=== PATIENT | male | born 1950 | race African-American/Black ===

== ENCOUNTER → 2016-02-18 | Outpatient (CLI) | payer MEDICARE ==
--- NOTE | 2016-02-18 13:06 | US ---
EXAMINATION TYPE: US kidneys/renal and bladder DATE OF EXAM: 02/18/2016 12:28 PM COMPARISON: 2011 ultrasound in PACS. MRI lumbar spine August 01, 2014. Lumbar spine x-ray July 11, 2014. 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 Even more prominent versus 2011 ultrasound. Bilateral Jets seen: No There is no evidence for hydronephrosis at this point in time. Simple appearing 4 cm cyst lower pole level left kidney is redemonstrated. It is slightly larger vers us 2011 ultrasound. IMPRESSION: No hydronephrosis is evident bilaterally. Enlarged prostate consistent with BPH is noted. Clinical co rrelation advised. Normal Values: Renal Length = 9 - 12cm
== END | disposition home or self-care (01) ==
LOC: RADUSWWP 12:13
PROVIDERS: ATTEND Family Medicine
DX: N18.2 Chronic kidney disease, stage 2 (mild) (principal); N40.0 Benign prostatic hyperplasia without lower urinary tract symptoms
CPT/HCPCS: 76770

== ENCOUNTER → 2016-02-28 | Outpatient (CLI) | payer MEDICARE ==
[2016-02-28 15:03] LABS: Uric Acid, Urine 45.6 mg/dL
[2016-03-02 12:20] LABS: Mis test requested (Non-blood) Total Protein Ur24hr
== END | disposition home or self-care (01) ==
LOC: LABWHC1 10:50
PROVIDERS: ATTEND Family Medicine
DX: N18.2 Chronic kidney disease, stage 2 (mild) (principal); M10.9 Gout, unspecified
CPT/HCPCS: 36415; 81050; 82575; 84156; 84560

== ENCOUNTER → 2016-04-20 | Outpatient (CLI) | payer MEDICARE ==
[2016-04-20 09:41] LABS: Basophils # (A) 0.1 k/uL (0-0.2); Basophils % (A) 1 %; CH 28.2; Eosinophils # (A) 0.3 k/uL (0-0.7); Eosinophils % (A) 6 %; HCT 45.4 % (39.0-53.0); HDW 3.15; HGB 14.4 gm/dL (13.0-17.5); Luc # (Auto) 0.19; Luc % (Auto) 3; Lymphocytes # (A) 2.3 k/uL (1.0-4.8); Lymphocytes % (A) 43 %; MCH 27.4 pg (25.0-35.0); MCHC 31.8 g/dL (31.0-37.0); MCV 86.1 fL (80.0-100.0); Mean Platelet Volume 6.7; Monocytes # (A) 0.3 k/uL (0-1.0); Monocytes % (A) 5 %; Neutrophils # (A) 2.2 k/uL (1.3-7.7); Neutrophils % (A) 41 %; RBC 5.27 m/uL (4.30-5.90); RDW 14.4 % (11.5-15.5); WBC 5.4 k/uL (3.8-10.6); WBC (Perox) 5.63
[2016-04-20 10:02] LABS: Appearance,Urine Clear (Clear); Bilirubin,Urine Negative (Negative); Glucose,Urine (UA) Negative (Negative); Ketones,Urine Negative (Negative); Leukocyte Esterase,Urine Negative (Negative); Nitrite,Urine Negative (Negative); Protein,Urine Trace (Negative); Specific Gravity,Urine 1.014 (1.001-1.035); UA Billing (MACRO vs. MICRO) CHEM; Urobilinogen,Urine <2.0 mg/dL (<2.0)
[2016-04-20 11:38] LABS: Anion Gap 13 mmol/L; Blood Urea Nitrogen 21 mg/dL (9-20); Calcium 10.2 mg/dL (8.4-10.2); Carbon Dioxide 23 mmol/L (22-30); Chloride 108 mmol/L (98-107); Glucose 135 mg/dL (74-99); Iron 69 ug/dL (49-181); Magnesium 1.8 mg/dL (1.6-2.3); Non-African American GFR(MDRD) 51 (>60 ml/min/1.73 sqM); Potassium 4.4 mmol/L (3.5-5.1); Sodium 144 mmol/L (137-145); Uric Acid 8.2 mg/dL (3.5-8.5)
[2016-04-20 11:48] LABS: Total Iron Binding Capacity 300 ug/dL (261-462)
== END ==
LOC: LABWHC1 08:37
PROVIDERS: ATTEND Internal Medicine Nephrology
DX: N18.3 Chronic kidney disease, stage 3 (moderate) (principal); D64.9 Anemia, unspecified; E55.9 Vitamin D deficiency, unspecified; E21.3 Hyperparathyroidism, unspecified; N39.0 Urinary tract infection, site not specified; M10.9 Gout, unspecified
CPT/HCPCS: 36415; 80048; 81003; 82306; 82728; 83540; 83550; 83735; 83970; 84100; 84550; 85025

== ENCOUNTER → 2016-07-09 | Outpatient (CLI) | payer MEDICARE ==
[2016-07-09 11:08] LABS: Basophils # (A) 0.1 k/uL (0-0.2); Basophils % (A) 1 %; CH 28.3; CHCM 33.1; Eosinophils # (A) 0.3 k/uL (0-0.7); Eosinophils % (A) 6 %; HCT 43.7 % (39.0-53.0); HDW 3.14; HGB 14.4 gm/dL (13.0-17.5); Luc # (Auto) 0.12; Luc % (Auto) 3; Lymphocytes # (A) 1.5 k/uL (1.0-4.8); Lymphocytes % (A) 34 %; MCH 28.3 pg (25.0-35.0); MCHC 32.8 g/dL (31.0-37.0); Mean Platelet Volume 6.9; Monocytes # (A) 0.3 k/uL (0-1.0); Monocytes % (A) 8 %; Neutrophils # (A) 2.1 k/uL (1.3-7.7); Neutrophils % (A) 48 %; RBC 5.09 m/uL (4.30-5.90); RDW 14.7 % (11.5-15.5); WBC 4.3 k/uL (3.8-10.6); WBC (Perox) 4.32
[2016-07-09 11:13] LABS: Anion Gap 13 mmol/L; Blood Urea Nitrogen 17 mg/dL (9-20); Calcium 9.7 mg/dL (8.4-10.2); Carbon Dioxide 21 mmol/L (22-30); Chloride 109 mmol/L (98-107); Glucose 125 mg/dL (74-99); Iron 50 ug/dL (49-181); Magnesium 1.8 mg/dL (1.6-2.3); Non-African American GFR(MDRD) 55 (>60 ml/min/1.73 sqM); Phosphorous 3.2 mg/dL (2.5-4.5); Potassium 3.9 mmol/L (3.5-5.1); Sodium 143 mmol/L (137-145); Uric Acid 8.2 mg/dL (3.5-8.5)
[2016-07-09 11:22] LABS: % Iron Saturation 18.1 % (20-50); Total Iron Binding Capacity 276 ug/dL (261-462)
[2016-07-09 11:58] LABS: Appearance,Urine Clear (Clear); Bilirubin,Urine Negative (Negative); Glucose,Urine (UA) Negative (Negative); Ketones,Urine Negative (Negative); Leukocyte Esterase,Urine Negative (Negative); Mucus,Urine Rare /hpf; Nitrite,Urine Negative (Negative); Particle Count 1838; Protein,Urine 1+ (Negative); Specific Gravity,Urine 1.017 (1.001-1.035); Squamous Epithelial Cell,Urine <1 /hpf (0-4); UA Billing (MACRO vs. MICRO) MICRO; Urobilinogen,Urine <2.0 mg/dL (<2.0); WBC,Urine <1 /hpf (0-5)
== END | disposition home or self-care (01) ==
LOC: LABWHC1 10:20
PROVIDERS: ATTEND Nurse Practitioner Family
DX: N39.0 Urinary tract infection, site not specified (principal); E55.9 Vitamin D deficiency, unspecified; D64.9 Anemia, unspecified; E21.3 Hyperparathyroidism, unspecified; M10.9 Gout, unspecified; N18.3 Chronic kidney disease, stage 3 (moderate)
CPT/HCPCS: 36415; 80048; 81001; 82306; 82728; 83540; 83550; 83735; 83970; 84100; 84550; 85025

== ENCOUNTER → 2016-08-18 | Outpatient (CLI) | payer MEDICARE ==
--- NOTE | 2016-08-18 13:10 | US ---
EXAMINATION TYPE: US kidneys/renal and bladder DATE OF EXAM: 08/18/2016 COMPARISON: Renal ultrasound February 18, 2016. CLINICAL HISTORY: N28.1 Renal Cyst. Follow up renal cysts. EXAM MEASUREMENTS: Right Kidney: 11.1 x 5.3 x 5.1 cm Left Kidney: 10.7 x 5.7 x 5.8 cm Right Kidney: Multiple tiny cystic lesions. Largest seen medial mid pole = 1.0 x 0.9 x 0.9 cm. Left Kidney: Dromedary hump seen. Cortex appears slightly heterogenous. Lower pole cystic lesion - 3 .9 x 3.7 x 3.3 cm. Lower pole echogenic nonvascular lesion - 0.8 x 0.8 x 0.5 cm. Bladder: Moderately distended. Prominent enlarged heterogenous lobular prostate seen = 8.4 x 7.1 x 5. 6 cm. Bilateral Jets not seen There is no evidence for hydronephrosis at this point in time. No nephrolithiasis is seen. No new s uspicious masses are identified. The urinary bladder is anechoic. Poor bladder distention is noted d ue to enlarged prostate gland similar to prior. Bilateral ureteral jets are seen. IMPRESSION: No hydronephrosis is evident bilaterally. No significant change from prior.
== END | disposition home or self-care (01) ==
LOC: RADUSWWP 12:18
PROVIDERS: ATTEND Internal Medicine Nephrology
DX: N28.1 Cyst of kidney, acquired (principal)
CPT/HCPCS: 76770

== ENCOUNTER → 2017-09-29 | Outpatient (CLI) | payer MEDICARE ==
--- NOTE | 2017-09-29 09:54 | US ---
EXAMINATION TYPE: US kidneys/renal and bladder DATE OF EXAM: 09/29/2017 COMPARISON: US 08/18/2016 CLINICAL HISTORY: N40.0 Benign prostatic hyperplasia. EXAM MEASUREMENTS: Right Kidney: 11.3 x 4.9 x 5.0 cm Left Kidney: 11.1 x 5.9 x 51 cm Right Kidney: No hydronephrosis. Multiple probable cysts visualized, largest measuring 1.0 x 0.9 x 1. 0 cm and similar to prior exam Left Kidney: No hydronephrosis. Cyst visualized lower pole measuring 4.0 x 3.2 x 3.3 cm Bladder: Limited evaluation due to enlarged prostate. Prostate measuring approx. 8.6 x 5.6 x 6.3 cm Bilateral Jets seen: No due to large prostate size Kidneys show normal cortical medullary differentiation. IMPRESSION: Prostatic enlargement. Simple cysts within the kidneys. Findings similar to prior exam.
== END | disposition home or self-care (01) ==
LOC: RADUSWWP 09:02
PROVIDERS: ATTEND Internal Medicine Nephrology
DX: N40.0 Benign prostatic hyperplasia without lower urinary tract symptoms (principal); N28.1 Cyst of kidney, acquired
CPT/HCPCS: 76770

== ENCOUNTER → 2017-12-28 | Outpatient (CLI) | payer MEDICARE ==
[2017-12-28 11:14] LABS: Basophils % (A) 1 %; Eosinophils # (A) 0.3 k/uL (0-0.7); Eosinophils % (A) 6 %; HCT 41.5 % (39.0-53.0); HGB 13.8 gm/dL (13.0-17.5); Lymphocytes # (A) 1.8 k/uL (1.0-4.8); Lymphocytes % (A) 41 %; MCH 28.5 pg (25.0-35.0); MCHC 33.2 g/dL (31.0-37.0); MCV 85.9 fL (80.0-100.0); Mean Platelet Volume 6.7; Monocytes # (A) 0.3 k/uL (0-1.0); Monocytes % (A) 6 %; Neutrophils % (A) 44 %; Platelet Count 233 k/uL (150-450); RBC 4.83 m/uL (4.30-5.90); RDW 14.9 % (11.5-15.5); WBC 4.4 k/uL (3.8-10.6)
[2017-12-28 19:16] LABS: Albumin 4.2 g/dL (3.80-4.90); Albumin/Globulin Ratio 1.68 (1.20-2.10); Anion Gap 9.7 mmol/L (4.00-12.00); Calcium 9.7 mg/dL (8.7-10.3); Carbon Dioxide 22.3 mmol/L (21.6-31.8); Globulin 2.5 g/dL (2.1-3.7); Potassium 4.1 mmol/L (3.5-5.5); Total Bilirubin 0.9 mg/dL (0.2-1.2); Total Protein 6.7 g/dL (6.2-8.2)
[2017-12-28 19:24] LABS: T4, Free (Free Thyroxine) 1.2 ng/dL (0.80-1.80)
== END | disposition home or self-care (01) ==
LOC: LABWHC1 09:42
PROVIDERS: ATTEND Family Medicine
DX: Z00.00 Encounter for general adult medical examination without abnormal findings (principal); E11.29 Type 2 diabetes mellitus with other diabetic kidney complication; E11.22 Type 2 diabetes mellitus with diabetic chronic kidney disease; I12.9 Hypertensive chronic kidney disease with stage 1 through stage 4 chronic kidney disease, or unspecified chronic kidney disease; N18.2 Chronic kidney disease, stage 2 (mild)
CPT/HCPCS: 36415; 80053; 80061; 84153; 84439; 84443; 85025

== ENCOUNTER → 2018-03-17 | Outpatient (CLI) | payer MEDICARE ==
[2018-03-17 13:39] LABS: Basophils % (A) 1 %; Eosinophils # (A) 0.2 k/uL (0-0.7); Eosinophils % (A) 5 %; HCT 44.2 % (39.0-53.0); HGB 14.3 gm/dL (13.0-17.5); Lymphocytes # (A) 1.6 k/uL (1.0-4.8); Lymphocytes % (A) 38 %; MCH 27.8 pg (25.0-35.0); MCHC 32.4 g/dL (31.0-37.0); MCV 85.7 fL (80.0-100.0); Mean Platelet Volume 6.5; Monocytes # (A) 0.3 k/uL (0-1.0); Monocytes % (A) 6 %; Neutrophils # (A) 2.1 k/uL (1.3-7.7); Neutrophils % (A) 48 %; Platelet Count 236 k/uL (150-450); RBC 5.15 m/uL (4.30-5.90); RDW 14.6 % (11.5-15.5); WBC 4.3 k/uL (3.8-10.6)
[2018-03-17 19:14] LABS: Hemoglobin A1C 6.6 % (4.0-6.0)
[2018-03-17 19:19] LABS: Albumin 4.2 g/dL (3.80-4.90); Albumin/Globulin Ratio 1.62 (1.60-3.17); Anion Gap 8.1 mmol/L (4.00-12.00); Calcium 9.9 mg/dL (8.7-10.3); Carbon Dioxide 23.9 mmol/L (21.6-31.8); Globulin 2.6 g/dL (1.6-3.3); Potassium 4.3 mmol/L (3.5-5.5); Total Bilirubin 0.8 mg/dL (0.3-1.2); Total Protein 6.8 g/dL (6.2-8.2)
== END | disposition home or self-care (01) ==
LOC: LABWHC1 11:37
PROVIDERS: ATTEND Family Medicine
DX: Z01.818 Encounter for other preprocedural examination (principal); E11.29 Type 2 diabetes mellitus with other diabetic kidney complication; N18.2 Chronic kidney disease, stage 2 (mild); I12.9 Hypertensive chronic kidney disease with stage 1 through stage 4 chronic kidney disease, or unspecified chronic kidney disease; Z01.812 Encounter for preprocedural laboratory examination
CPT/HCPCS: 36415; 80053; 83036; 85025; 93005

== ENCOUNTER → 2019-09-29 | Outpatient (CLI) | payer MEDICARE ==
[2019-09-29 19:35] LABS: African American GFR (CKD) 42.9 (60.0-200.0); Albumin 4.3 g/dL (3.80-4.90); Albumin/Globulin Ratio 1.65 (1.60-3.17); BUN/Creat Ratio 20.56 Ratio (12.00-20.00); Calcium 9.7 mg/dL (8.7-10.3); Globulin 2.6 g/dL (1.6-3.3); Potassium 4.1 mmol/L (3.5-5.5); Total Bilirubin 0.8 mg/dL (0.2-1.2); Total Protein 6.9 g/dL (6.2-8.2)
== END | disposition home or self-care (01) ==
LOC: LABWHC1 13:59
PROVIDERS: ATTEND Nurse Practitioner Family
DX: N18.2 Chronic kidney disease, stage 2 (mild) (principal)
CPT/HCPCS: 36415; 80053

== ENCOUNTER → 2019-10-04 | Outpatient (CLI) | payer MEDICARE ==
--- NOTE | 2019-10-04 21:43 | US ---
EXAMINATION TYPE: US kidneys/renal and bladder DATE OF EXAM: 10/04/2019 COMPARISON: 09/29/2017 CLINICAL HISTORY: N18.2 chronic kidney disease stage 2. EXAM MEASUREMENTS: Right Kidney: 12.0 x 4.6 x 5.4 cm Left Kidney: 11.4 x 6.0 x 5.1 cm Right Kidney: multiple small cysts, largest measuring 1.1 x 1.0 x 1.1cm, echogenic shadowing foci me asuring 0.4 x 0.4 x 0.6cm probable stone Left Kidney: cyst measuring 3.3 x 3.8 x 2.6cm, echogenic shadowing foci measuring 0.5 x 0.3 x 0.4cm Bladder: wnl, prominent prostate, similar to prior exam IMPRESSION: 1. Bilateral renal stones without obstruction. 2. Renal cysts present previously
== END | disposition home or self-care (01) ==
LOC: RADUSWWP 09:15
PROVIDERS: ATTEND Internal Medicine Nephrology
DX: N20.0 Calculus of kidney (principal); N28.1 Cyst of kidney, acquired; N18.2 Chronic kidney disease, stage 2 (mild)
CPT/HCPCS: 76770

== ENCOUNTER → 2020-11-01 | Outpatient (CLI) | payer MEDICARE | END | disposition home or self-care (01) | LOC: LABWHC1 12:42 | PROVIDERS: ATTEND Urology | DX: R97.20 Elevated prostate specific antigen [PSA] (principal) | CPT/HCPCS: 36415; 84153 ==

== ENCOUNTER → 2021-07-18 | Outpatient (CLI) | payer MEDICARE ==
[2021-07-18 18:49] LABS: HCT 39.8 % (39.6-50.0); HGB 13.1 g/dL (13.0-17.0); MCH 27.4 pg (27.0-32.0); MCHC 32.9 g/dL (32.0-37.0); MCV 83.3 fL (80.0-97.0); Mean Platelet Volume 10.2 fL (9.5-12.2); NRBC Per 100 WBC 0 /100 WBCS (0.0-0.0); Platelet Count 222 X 10*3/uL (140-440); RBC 4.78 X 10*6/uL (4.40-5.60); RDW 15.4 % (11.5-14.5); WBC 5.78 X 10*3/uL (4.50-10.00)
[2021-07-18 19:37] LABS: ALT 46 U/L (10-49); AST 32 U/L (14-35); African American GFR (CKD) 62.7 (60.0-200.0); BUN/Creat Ratio 16.62 Ratio (12.00-20.00); Blood Urea Nitrogen 21.6 mg/dL (9.0-27.0); Calcium 9.7 mg/dL (8.7-10.3); Carbon Dioxide 22.3 mmol/L (20.0-27.5); Chloride 107 mmol/L (96-109); Chol/HDL Ratio 4.51 Ratio; Glucose 125 mg/dL (70-110); LDL Cholesterol,Calculated 119.2 mg/dL (0.0-131.0); Non-African American GFR(CKD) 54.1 (60.0-200.0); Potassium 3.6 mmol/L (3.5-5.5); Sodium 142 mmol/L (135-145)
== END | disposition home or self-care (01) ==
LOC: LABWHC1 11:29
PROVIDERS: ATTEND Nurse Practitioner Family
DX: E78.2 Mixed hyperlipidemia (principal); I48.0 Paroxysmal atrial fibrillation
CPT/HCPCS: 36415; 80048; 80061; 84443; 84450; 84460; 85027

== ENCOUNTER → 2021-08-07 | Outpatient (CLI) | payer MEDICARE | END | disposition home or self-care (01) | LOC: LABWHC1 14:28 | PROVIDERS: ATTEND Urology | DX: R97.20 Elevated prostate specific antigen [PSA] (principal) | CPT/HCPCS: 36415; 84153 ==

== ENCOUNTER → 2021-12-22 | Outpatient (CLI) | payer MEDICARE ==
--- NOTE | 2021-12-23 16:43 | MR ---
EXAMINATION TYPE: MR Prostate wo/w con DATE OF EXAM: 12/22/2021 7:53 AM COMPARISON: None. CLINICAL INDICATION:Male, 71 years old with history of Elevated PSA; TECHNIQUE: Multi-planar, multi-sequence imaging of the pelvis is performed prior to and following the uncomplicated administration of bolus intravenous gadolinium. CONTRAST: 9 Gadavist Interpretive Criteria: PI-RADS v2.1 SERUM PSA: * 5.6, 08/07/2021 * 6.7, 02/12/2021. SURGICAL PATHOLOGY: No data available. FINDINGS: Prostatic dimensions: 8.2 x 6.3 x 7.5 cm cm. Ellipsoid Volume:202.87 (PSA density=0.03 ng/mL/mL) CENTRAL GLAND (Central and Transition Zones/CZ+TZ): Multiple bilateral, heterogenous appearing hypertrophic stromal nodules, without suspicious lesion. M edian lobe hypertrophy with protrusion into the base of the bladder. (PI-RADS 2) PERIPHERAL ZONE (PZ): Indistinct wedgelike areas of low ADC, and low T2 signal, No evidence of masslike abnormality, or loc alized perfusional hypervascularity, to further suggest a focus of clinically significant prostate ca ncer. (PI-RADS 2) SEMINAL VESICLES (SV): Symmetric and unremarkable. PERIPROSTATIC TISSUES: Unremarkable. LYMPH NODES: No enlarged pelvic lymph node. REMAINING PELVIS: Bladder wall thickening with trabeculations likely secondary to chronic bladder outflow obstruction. Santana catheter in place. Trace free fluid is seen within the pelvis. No pathologic bowel dilation or mural thickening. OSSEOUS STRUCTURES: No suspicious osseous abnormality. IMPRESSION: 1. No specific features for high-risk prostate cancer. There are numerous circumscribed transition zo ne nodules and low-risk peripheral zone abnormalities (PI-RADS 2). 2. Substantial BPH, estimated gland volume 202.87 mL.
== END | disposition home or self-care (01) ==
LOC: RADMRIMAIN 06:10
PROVIDERS: ATTEND Urology
DX: N40.0 Benign prostatic hyperplasia without lower urinary tract symptoms (principal)
CPT/HCPCS: 72197; A9585

== ENCOUNTER → 2022-05-11 | Outpatient (CLI) | payer MEDICARE ==
[2022-05-11 13:59] LABS: Creatinine,Urine Random 54.6 mg/dL; Protein/Creatinine Ratio,Urine 0.952
[2022-05-11 15:30] LABS: Basophils # (A) 0.02 X 10*3/uL (0.00-0.10); Basophils % (A) 0.2 %; Eosinophils # (A) 0.06 X 10*3/uL (0.04-0.35); Eosinophils % (A) 0.7 %; HCT 34.7 % (39.6-50.0); HGB 11.1 g/dL (13.0-17.0); Immature Grans, Automated 0.9 %; Lymphocytes # (A) 2.48 X 10*3/uL (0.90-5.00); Lymphocytes % (A) 27.9 %; MCH 26.5 pg (27.0-32.0); MCV 82.8 fL (80.0-97.0); Mean Platelet Volume 9.3 fL (9.5-12.2); Monocytes % (A) 7.9 %; NRBC Per 100 WBC 0 /100 WBCS (0.0-0.0); Neutrophils # (A) 5.54 X 10*3/uL (1.80-7.70); Neutrophils % (A) 62.4 %; Platelet Count 344 X 10*3/uL (140-440); RBC 4.19 X 10*6/uL (4.40-5.60); RDW 14.8 % (11.5-14.5); WBC 8.88 X 10*3/uL (4.50-10.00)
[2022-05-11 16:36] LABS: % Iron Saturation 15.76 (15.00-50.00); African American GFR (CKD) 57.4 (60.0-200.0); Anion Gap 11.2 mmol/L (10.00-18.00); BUN/Creat Ratio 22.79 Ratio (12.00-20.00); Blood Urea Nitrogen 31.9 mg/dL (9.0-27.0); Calcium 9.6 mg/dL (8.7-10.3); Carbon Dioxide 23.8 mmol/L (20.0-27.5); Non-African American GFR(CKD) 49.5 (60.0-200.0); Phosphorus 3.5 mg/dL (2.4-5.1); Potassium 3.9 mmol/L (3.5-5.5); Uric Acid 6.5 mg/dL (3.7-8.7)
[2022-05-11 16:57] LABS: Albumin 3.8 g/dL (3.8-4.9); Ferritin 49.1 ng/mL (22.0-322.0)
[2022-05-12 06:11] LABS: Appearance,Urine Cloudy (Clear); Bilirubin,Urine Negative (Negative); Blood,Urine Large (Negative); Color,Urine Yellow (Yellow); Ketones,Urine Negative (Negative); Nitrite,Urine Negative (Negative); Specific Gravity,Urine 1.013 (1.001-1.030); Urobilinogen,Urine 0.2 (0.2,1.0)
[2022-05-12 06:18] LABS: Bacteria,Urine None Seen /HPF (None Seen)
== END | disposition home or self-care (01) ==
LOC: LABWHC1 11:34
PROVIDERS: ATTEND Nurse Practitioner Family
DX: N25.81 Secondary hyperparathyroidism of renal origin (principal); N18.31 Chronic kidney disease, stage 3a; D63.1 Anemia in chronic kidney disease; E55.9 Vitamin D deficiency, unspecified; M10.9 Gout, unspecified; N39.0 Urinary tract infection, site not specified; R80.9 Proteinuria, unspecified
CPT/HCPCS: 36415; 80048; 81001; 82040; 82306; 82570; 82728; 83540; 83550; 83735; 83970; 84100; 84156; 84550; 85025

== ENCOUNTER → 2022-07-09 | Outpatient (CLI) | payer MEDICARE ==
--- NOTE | 2022-07-09 16:50 | US ---
EXAMINATION TYPE: US venous doppler duplex LE LT DATE OF EXAM: 07/09/2022 4:34 PM COMPARISON: NONE CLINICAL INDICATION: Male, 71 years old with history of R60.0 LOCALIZED EDEMA; Left leg swelling SIDE PERFORMED: Left TECHNIQUE: The lower extremity deep venous system is examined utilizing real time linear array sonog colt with graded compression, doppler sonography and color-flow sonography. VESSELS IMAGED: Common Femoral Vein Deep Femoral Vein Greater Saphenous Vein * Femoral Vein Popliteal Vein Small Saphenous Vein * Proximal Calf Veins (* superficial vessels) Grayscale, color doppler, spectral doppler imaging performed of the deep veins of the left lower extr emity. There is normal flow, compressibility, vascular waveforms. Left Leg: Negative for DVT IMPRESSION: No ultrasound evidence for deep venous thrombosis of the left lower extremity.
== END | disposition home or self-care (01) ==
LOC: RADUSWWP 15:42
PROVIDERS: ATTEND Family Medicine
DX: R60.0 Localized edema (principal); M79.672 Pain in left foot

== ENCOUNTER → 2022-12-25 | Outpatient (CLI) | payer MEDICARE ==
[2022-12-25 20:59] LABS: BUN/Creat Ratio 15.07 Ratio (12.00-20.00); Blood Urea Nitrogen 21.1 mg/dL (9.0-27.0); Calcium 9.5 mg/dL (8.7-10.3); Carbon Dioxide 26.2 mmol/L (21.6-31.8); Chloride 104 mmol/L (96-109); Glucose 104 mg/dL (70-110); Potassium 3.7 mmol/L (3.5-5.5); Sodium 141 mmol/L (135-145)
== END | disposition home or self-care (01) ==
LOC: LABWHC1 15:28
PROVIDERS: ATTEND Family Medicine
DX: I12.9 Hypertensive chronic kidney disease with stage 1 through stage 4 chronic kidney disease, or unspecified chronic kidney disease (principal); E11.69 Type 2 diabetes mellitus with other specified complication; E78.2 Mixed hyperlipidemia; E11.59 Type 2 diabetes mellitus with other circulatory complications; E11.21 Type 2 diabetes mellitus with diabetic nephropathy; N18.31 Chronic kidney disease, stage 3a; E87.6 Hypokalemia; E11.22 Type 2 diabetes mellitus with diabetic chronic kidney disease
CPT/HCPCS: 36415; 80048

== ENCOUNTER → 2023-04-21 | Outpatient (CLI) | payer MEDICARE ==
--- NOTE | 2023-04-21 12:05 | US ---
EXAMINATION TYPE: US scrotum with doppler. TECHNIQUE: Grayscale and color Doppler Duplex imaging performed of the scrotum. 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 Prior right hernia repai r. EXAM MEASUREMENTS: TESTICLES: Right Testicle: 5.3 x 2.3 x 4.1 cm Left Testicle: 4.7 x 2.0 x 3.8 cm. Slightly lobulated in shape. Mildly heterogeneous echotexture. EPIDIDYMIS HEAD: Right Epididymis: 1.4 x 1.2 cm. There are multiple epididymal head cysts seen, largest measuring 1.1 x 0.7 x 0.8cm. Left Epididymis: 1.2 x 0.9 cm Doppler performed to assess for testicular vascularity; good bilateral color flow and waveforms are s een. On the right, some superimposed arterial and venous flow is demonstrated. There is no evidence of testicular torsion. Presence of hydroceles: Small bilateral Presence of varicoceles: Bilateral dilated vessels IMPRESSION: 1. The left testicle is slightly smaller, slightly lobulated, and slightly heterogeneous. Normal flow is seen. Correlate for history of any old injury. No discrete mass is identified. Consider ultrasoun d follow-up in 3 months to reassess. No sonographic evidence for testicular torsion. 2. Multiple right-sided epididymal head cysts, largest measuring 1.1 cm. 3. Large bilateral varicoceles. Given that these appear ectatic even without Valsalva, consider contr ast-enhanced CT of the abdomen and pelvis to exclude any upstream retroperitoneal venous compression.
--- NOTE | 2023-04-21 12:08 | US ---
EXAMINATION TYPE: US groin RT DATE OF EXAM: 04/21/2023 COMPARISON: NONE CLINICAL INDICATION: Male, 72 years old with history of R19.09 OTHER INTRA-ABDOMINAL AND PELVIC N50.8 11 RIGHT TESTIC; Patient states prior right hernia repair in 2021. Patient having right sided pain. TECHNIQUE: Scanned right groin, area of concern FINDINGS: Grid Caster notes: The right groin was scanned at patients area of concern. A 2.4cm lymph node was seen with a 0.5cm cortex. No evidence of inguinal hernia was seen on today's exam. Left groi n pictures taken for comparison. Provided images shows a prominent lymph node measuring 2.3 x 2.2 x 1.3 cm it is mildly thickened and mildly enlarged. No additional discrete sonographic abnormality is seen. IMPRESSION: Mildly enlarged right inguinal lymph node measuring up to 2.2 cm short axis. This may be reactive/pos t inflammatory. Recommend clinical follow-up. If the lucinda enlargement persists or any growth is note d, the patient can be rescanned.
== END | disposition home or self-care (01) ==
LOC: RADUSWWP 07:03
PROVIDERS: ATTEND Family Medicine
DX: R19.09 Other intra-abdominal and pelvic swelling, mass and lump (principal); N50.811 Right testicular pain; I86.1 Scrotal varices; N50.3 Cyst of epididymis
CPT/HCPCS: 76870; 93975

== ENCOUNTER → 2023-06-22 | Outpatient (CLI) | payer MEDICARE ==
--- NOTE | 2023-06-24 09:19 | US ---
EXAMINATION TYPE: US kidneys/renal and bladder DATE OF EXAM: 06/22/2023 COMPARISON: NONE CLINICAL INDICATION: Male, 72 years old with history of N18.31 CHRONIC KIDNEY DISEASE, STAGE 3A; CKD, known cysts and left renal stone EXAM MEASUREMENTS: Right Kidney: 10.9 x 4.9 x 6.2 cm Left Kidney: 9.4 x 4.4 x 6.7 cm Right Kidney: 1.2 x 1.1 x 1.4cm cyst seen Left Kidney: 4.0 x 3.8 x 3.2cm cyst, 0.9cm stone with twinkle artifact seen Bladder: wnl There is no evidence for hydronephrosis at this point in time. No masses are identified. The urinar y bladder is anechoic. Bilateral ureteral jets are seen. IMPRESSION: Nonobstructing left-sided nephrolithiasis.
== END | disposition home or self-care (01) ==
LOC: RADUSWWP 15:36
PROVIDERS: ATTEND Internal Medicine Nephrology
DX: N18.31 Chronic kidney disease, stage 3a (principal); N20.0 Calculus of kidney
CPT/HCPCS: 76770

== ENCOUNTER → 2023-11-09 | Outpatient (CLI) | payer MEDICARE ==
[2023-11-10 02:20] LABS: HCT 49.5 % (39.6-50.0); MCH 27.1 pg (27.0-32.0); MCHC 32.3 g/dL (32.0-37.0); MCV 83.8 FL (80.0-97.0); Mean Platelet Volume 10.1 FL (9.5-12.2); NRBC Per 100 WBC 0 X 10*3/uL (0.00-0.01); Platelet Count 235 X 10*3/uL (140-440); RBC 5.91 X 10*6/uL (4.40-5.60); RDW 15.8 % (11.5-14.5); WBC 6.23 X 10*3/uL (4.50-10.00)
[2023-11-10 02:59] LABS: BUN/Creat Ratio 13.76 Ratio (12.00-20.00); Blood Urea Nitrogen 23.4 mg/dL (9.0-27.0); Calcium 9.8 mg/dL (8.7-10.3); Carbon Dioxide 24.8 mmol/L (21.6-31.8); Chloride 104 mmol/L (96-109); Glucose 104 mg/dL (70-110); Potassium 3.6 mmol/L (3.5-5.5); Sodium 142 mmol/L (135-145)
== END | disposition home or self-care (01) ==
LOC: LABWHC1 16:00
PROVIDERS: ATTEND Internal Medicine Cardiovascular Disease
DX: R00.1 Bradycardia, unspecified (principal)
CPT/HCPCS: 36415; 80048; 84443; 85027

== ENCOUNTER 2023-11-15 10:44 | Day surgery (SDC) | payer MEDICARE ==
[~2023-11-15 10:44] MED LIST: ceFAZolin 1 GM in SODIUM CHLORIDE 0.9% IRRIG BTL 250 ML IRRIGATION PRN
[2023-11-15] MEDS: SODIUM CHLORIDE 0.9% 1,000 ML IV SCH ×2 (10:57→16:24)
[2023-11-15] MEDS: IV FLUID CONTINUATION 1,000 ML IV ONE (10:58)
[2023-11-15 11:09] LABS: Glucose,Whole Blood 107 mg/dL (70-110)
[2023-11-15] MEDS: ceFAZolin 2 GM in SODIUM CHLORIDE 0.9% 500 ML 500 ML IRRIGATION ONE (12:05)
[2023-11-15] MEDS: HEPARIN SODIUM,PORCINE (1 ML) 2,500 UNIT in SODIUM CHLORIDE 0.9% 250 ML IRRIGATION ONE (12:05)
[2023-11-15] MEDS: ceFAZolin 1,000 MG VIAL IVPB ONE ×2 (12:06→12:21)
[2023-11-15] MEDS: MIDAZOLAM 2 MG/2 ML VIAL IVP ONE ×3 (12:21→12:36)
[2023-11-15] MEDS: fentaNYL (PF) 50 MCG/ML 2 ML AMP IVP ONE ×3 (12:21→12:36)
[2023-11-15] MEDS: LIDOCAINE 1% INJ 10MG/ML (20 ML MDV) SQ ONE (12:30)
--- NOTE | 2023-11-15 15:08 | P.PCN ---
Description of Procedure: CARDIOLOGY PROCEDURE NOTE [employer]: Dr. Keegan Hayden Procedure performed: Insertion dual chamber permanent pacemaker Site: Left subclavian Indications: Symptomatic bradycardia despite low dose of atenolol with need of beta carissa for ventricular tachycardia Complications: None Blood Loss: Minimal Description of Procedure: After the risks, benefits, and alternatives of the above-mentioned procedure was explained in detail with the patient, informed consent was obtained. The patient was taken to the cardiac catheterization suite where the left subclavian area was sterily prepped and draped in the usual fashion. One percent lidocaine was used to anesthetize the left subclavian area. A 1.5 inch incision was made utilizing a #15 blade in the left subclavian site. Hemostasis was made complete. Electrocautery along with digital blunt dissection was utilized to dissect to the level of the pectoralis muscle fascia and create a pocket large enough to accommodate the generator. A thin walled micro puncuture needle was used to cannulate the left subclavian vein. A guide-wire was inserted through the needle into the vascular lumen under fluoroscopic guidance. The needle was removed. Another thin walled micr puncture needle was used to again cannulate the left subclavian vein. A guide-wire was inserted through the needle into the vascular lumen under fluoroscopic guidance. The needle was removed and both guide-wires were attached to the field. A venous sheath and dilator were advanced over the guidewire into the vascular lumen under fluoroscopic guidance. The dilator and guidewire were then removed. A right ventricular bipolar lead was inserted into the sheath and advanced under fluoroscopic guidance into the right ventricle under fluoroscopic guidance. Adequate sensing and pacing thresholds were achieved and the lead was screwed into place in the RV septum. The sheath was then torn away. The lead collar was advanced and anchored into place utilizing #0 silk suture. Next, another venous sheath and dilator were advanced under fluoroscopic guidance into the vascular lumen over the guidewire. After removal of the dilator and guidewire, a right atrial bipolar lead was inserted into this sheath and advanced under fluoroscopic guidance into the right atrium. The lead was positioned into the right atrial appendage. Adequate sensing and pacing thresholds were then achieved with patient being in Afib at the time and the lead was screwed into place. The sheath was then torn away. The lead collar was advanced and anchored into place utilizing #0 silk suture. The leads were then inserted into the appropriate position into the generator. They were then secured with the setscrew provided. The leads and generator were inserted into the pocket with the leads posterior. The subcutaneous tissue was approximated utilizing #2.0 and 3.0 vicryl in an interrupted stitch fashion. The dermal layer was approximated utilizing #4.0 vicryl. The area was cleansed with sterile saline and dried. A sterile 4x4 dressing was applied and the patient was transferred to the post catheterization holding area in stable and satisfactory condition. The patient tolerated the procedure well. 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: [employer] Brand: [id number] [id number] [place] XT DR MRI Model #: [id number] Serial#: [id number] Right Atrial Bipolar Lead Data: Type: Active fixation lead Termite Helper: [employer] Model#: 5076-52 Serial Number: [id number] Right Ventricular Bipolar Lead Data: Type: Active fixation lead Termite Helper: [employer] Model #: 5076-58 Serial #: [id number] Stimulation Thresholds: Right atrial bipolar lead pacing and sensing thresholds Voltage: Afib Impedance: 551 ohms P-wave sensin.0 mV Right Ventricular bipolar lead pacing and sensing thresholds Pulse Width: 0.4ms Voltage: 1.5 volts Impedance: 760 ohms R-wave sensin.5 mV Parameter Setting: Pacing mode is AAIR<=>DDDR Lower rate 60 bpm Upper rate 130 bpm Impressions: 1. Successful implantation of a dual chamber permanent pacemaker in the left pectoral site. Plan: 1. Routine post procedure care will be instituted as well as outpatient follow- up surveillance.
--- NOTE | 2023-11-15 15:48 | XR ---
EXAMINATION TYPE: XR chest 1V portable DATE OF EXAM: 11/15/2023 COMPARISON: NONE HISTORY: Lead placement check TECHNIQUE: Single frontal view of the chest is obtained. FINDINGS: There is a 2-lead cardiac pacemaker which appears to be in satisfactory position. The lungs are clear. No pleural effusion or pneumothorax. The pulmonary vasculature is not congested. The osseous structures are intact IMPRESSION: 1. No acute cardiopulmonary disease. 2. Apparent satisfaction position of the 2-lead cardiac pacemaker. [facility], , 11/15/2023 3:45 PM
[2023-11-15 17:21] LABS: Glucose,Whole Blood 136 mg/dL (70-110)
[2023-11-15] MEDS: LORATADINE 10 MG TAB PO SCH (21:03)
[2023-11-15] MEDS: MONTELUKAST 10 MG TAB PO SCH (21:03)
[2023-11-15] MEDS: allopurinoL 100 MG TAB PO SCH (21:03)
[2023-11-15] MEDS: ACETAMINOPHEN TAB 325 MG TAB PO PRN (21:07)
[2023-11-16 08:04] VITALS: BP 163/99; PULSE 62; RESP 16; TEMP 98.9
[2023-11-16] MEDS: MULTIVITAMINS, THERA 1 EACH TAB PO SCH (08:08)
[2023-11-16] MEDS: FENOFIBRATE 160 MG TAB PO SCH (08:08)
[2023-11-16] MEDS: DOXAZOSIN 4 MG TAB PO SCH (08:08)
[2023-11-16] MEDS: FUROSEMIDE 40 MG TAB PO SCH (08:08)
[2023-11-16] MEDS: ZINC SULFATE 220 MG CAP PO SCH (08:08)
[2023-11-16] MEDS: POTASSIUM CHLORIDE ER 20 MEQ TAB.ER PO SCH (08:08)
[2023-11-16] MEDS: VALSARTAN 40 MG TAB PO SCH (08:08)
[2023-11-16] MEDS: CHOLECALCIFEROL 25 MCG (1000 IU) TABLET PO SCH (08:08)
[2023-11-16] MEDS: DAPAGLIFLOZIN PROPANEDIOL 5 MG TABLET PO SCH (08:08)
--- NOTE | 2023-11-16 15:59 | P.DS ---
Providers Attending physician: Keegan Hayden DO Primary care physician: [facility] Course: Patient is a pleasant 73-year-old male with history of persistent atrial fibrillation, nonsustained ventricular tachycardia, who has been experiencing increased fatigue, exercise intolerance and occasional lightheadedness. Workup showed significant bradycardia with heart rates in the 40s with additional need for atenolol given his nonsustained ventricular tachycardia. Therefore, permanent pacemaker was recommended. Patient underwent successful dual-chamber permanent pacemaker 11/15/2023 without incident. He was noted to be in atrial fibrillation and atrial thresholds for pacing unable to be determined. Unfortunately, on repeat interrogation atrial thresholds in terms of sensing were inadequate and appears to be dislodgment of the right atrial lead. His right ventricular lead however appears stable and after discussing with primary relocation counselor and reviewing recent data appears he is at least persistent if not, chronic A. fib and therefore, attempting VVI and monitoring response. Discussed in detail with the patient and patient agreeable. He is stable for discharge home on 11/16/2023 with follow-up in the office. Patient Condition at Discharge: Good Plan - Discharge Summary Discharge Rx Participant: No New Discharge Prescriptions: No Action Cetirizine HCl [Zyrtec] 10 mg PO HS Cholecalciferol (Vitamin D3) [Vitamin D3 (50 Mcg = 2000 Iu)] 50 mcg PO DAILY Zinc Gluconate [Zinc] 50 mg PO DAILY Apixaban [Eliquis] 5 mg PO BID allopurinoL 200 mg PO DAILY Furosemide [Lasix] 40 mg PO DAILY Fenofibrate 160 mg PO DAILY Potassium Chloride [Klor-Con M10] 20 meq PO DAILY minoxidiL 5 mg PO DAILY Multi Vitamin 1 tab PO DAILY Unk Echinacea 1 tab PO DAILY Garlic 1,000 mg PO DAILY Empagliflozin [Jardiance] 10 mg PO DAILY Doxazosin Mesylate [Cardura] 4 mg PO DAILY Montelukast [Singulair] 10 mg PO HS minoxidiL 2.5 mg PO HS Valsartan 40 mg PO DAILY Unk Colchicine 1 tab PO DIRECTED PRN PRN Reason: gout Discharge Medication List Unk Colchicine 1 tab PO DIRECTED PRN 11/12/23 [History] Unk Echinacea 1 tab PO DAILY 11/12/23 [History] Apixaban [Eliquis] 5 mg PO BID 11/12/23 [History] Cetirizine HCl [Zyrtec] 10 mg PO HS 11/12/23 [History] Cholecalciferol (Vitamin D3) [Vitamin D3 (50 Mcg = 2000 Iu)] 50 mcg PO DAILY 11/12/23 [History] Doxazosin Mesylate [Cardura] 4 mg PO DAILY 11/12/23 [History] Empagliflozin [Jardiance] 10 mg PO DAILY 11/12/23 [History] Fenofibrate 160 mg PO DAILY 11/12/23 [History] Furosemide [Lasix] 40 mg PO DAILY 11/12/23 [History] Garlic 1,000 mg PO DAILY 11/12/23 [History] Montelukast [Singulair] 10 mg PO HS 11/12/23 [History] Multi Vitamin 1 tab PO DAILY 11/12/23 [History] Potassium Chloride [Klor-Con M10] 20 meq PO DAILY 11/12/23 [History] Valsartan 40 mg PO DAILY 11/12/23 [History] Zinc Gluconate [Zinc] 50 mg PO DAILY 11/12/23 [History] allopurinoL 200 mg PO DAILY 11/12/23 [History] minoxidiL 2.5 mg PO HS 11/12/23 [History] minoxidiL 5 mg PO DAILY 11/12/23 [History] Follow up Appointment(s)/Referral(s): Chase Garcia MD [STAFF PHYSICIAN] - 11/23/23 3:00 pm (APPOINTMENT MADE ON November @ 3:00PM FOR DEVICE CHECK AND TO SEE DR. GARCIA) Patient Instructions/Handouts: Moderate Sedation (DC), Pacemaker (DC) Activity/Diet/Wound Care/Special Instructions: 1. Keep dressing dry for 5 DAYS. You may cover the are with Saran wrap or Cling wrap prior to a shower. 2. The dressing will be removed in the [facility] at [facility]iology. Absorbable sutures were used to close the wound. . 3. Avoid raising the left arm above the shoulder level. 4 week restriction. 4.Avoid arm movements, like back scratching, rubbing the head, or pulling a cord. 4 week restriction. 5. Gentle range of motion movements of the shoulder, closest to the incision should be performed to avoid a frozen shoulder. 6. The opposite arm may be used freely. 7.Avoid driving for 7 days. 8.Avoid activities such as golfing,swimming,weed whacking,lifting more than 10 lbs weight,bowling, gymnastics, and weight lifting/training. (6 week restriction) 9. Activities such as wood chopping with an axe, pull ups in the gymnasium, power lifting, arc-welding, being close to home induction cooktops will always be a problem 10.Arm sling is only a reminder not to raise the arm above the head. You do not need to keep the arm completely immobilized. You are free to move the arm and use it for normal activities. Discharge Disposition: HOME SELF-CARE
[2023-11-16] MEDS ORDERED: APIXABAN 5 MG TAB PO SCH (21:00)
== END 2023-11-16 14:56 | disposition home or self-care (01) ==
LOC: CATHEP 10:44 → 6NMEDSUR 13:27 → CATHEP 11-16 14:56
PROVIDERS: ATTEND Internal Medicine
DX: R00.1 Bradycardia, unspecified
CPT/HCPCS: 33208; 71045

== ENCOUNTER → 2024-03-13 | Outpatient (CLI) | payer MEDICARE ==
[2024-03-13 17:30] LABS: ALT 25 U/L (10-49); AST 27 U/L (14-35); Chol/HDL Ratio 3.83 Ratio; LDL Cholesterol,Calculated 118.6 mg/dL (0.0-131.0); VLDL Calculation 11.48 mg/dL (5.00-40.00)
== END | disposition home or self-care (01) ==
LOC: LABWHC1 10:09
PROVIDERS: ATTEND Internal Medicine Cardiovascular Disease
DX: E78.2 Mixed hyperlipidemia (principal)
CPT/HCPCS: 36415; 80061; 84450; 84460

== ENCOUNTER → 2024-06-26 | Outpatient (CLI) | payer MEDICARE ==
--- NOTE | 2024-06-26 16:04 | XR ---
EXAMINATION TYPE: XR abdomen 2V DATE OF EXAM: 06/26/2024 3:49 PM COMPARISON: None CLINICAL INDICATION: Male, 73 years old with history of K59.00 CONSTIPATION, UNSPECIFIED; [facility] TECHNIQUE: Two views of the abdomen were obtained. FINDINGS: Status post L4-L5 posterior lumbar fusion. Partially visualized right atrial and right ventricular pa cer leads. No significant stool burden is seen. No dilated small bowel loops. Some scattered air with in the colon. Multiple pelvic phleboliths. IMPRESSION: No significant stool burden seen. Nonobstructive bowel gas pattern. [facility], Workstation: [facility], 06/26/2024 4:01 PM
== END | disposition home or self-care (01) ==
LOC: RADXRMAIN 15:28
PROVIDERS: ATTEND Family Medicine
DX: K59.00 Constipation, unspecified (principal); R19.5 Other fecal abnormalities
CPT/HCPCS: 74019

== ENCOUNTER 2024-07-22 11:31 | Emergency (ER) | payer MEDICARE ==
--- NOTE | 2024-07-22 12:42 | ED ---
Abdominal Pain HPI - General Chief Complaint: Abdominal Pain Stated Complaint: R side back pain Time Seen by Provider: 07/22/24 12:39 Source: patient, family, RN notes reviewed Mode of arrival: ambulatory Limitations: no limitations - History of Present Illness Initial Comments: 74-year-old male presenting for right lower quadrant abdominal pain x 1 week. Describes a constant, sharp pain in the right lower quadrant that radiates to the right flank and is worse with movement. Admits mild dysuria otherwise denies urinary frequency, urinary urgency, hematuria, fevers, nausea, vomiting. Reports Tylenol has been helping with the pain. Reports pain is a about a 5 out of 10 right now. Last bowel movement was yesterday and was normal. States he has been having gastrointestinal issues such as bloating and heartburn and is scheduled to see a tower operator on Wednesday. He does have a history of kidney stones. Abdominal surgical history includes hernia repair. Patient is on Eliquis. He has history of atrial fibrillation and a pacemaker. - Related Data Home Medications Medication Instructions Recorded Confirmed Unk Colchicine 1 tab PO DIRECTED PRN 11/12/23 11/12/23 Unk Echinacea 1 tab PO DAILY 11/12/23 11/15/23 Apixaban [Eliquis] 5 mg PO BID 11/12/23 11/15/23 Cetirizine HCl [Zyrtec] 10 mg PO HS 11/12/23 11/15/23 Cholecalciferol (Vitamin D3) 50 mcg PO DAILY 11/12/23 11/15/23 [Vitamin D3 (50 Mcg = 2000 Iu)] Doxazosin Mesylate [Cardura] 4 mg PO DAILY 11/12/23 11/15/23 Empagliflozin [Jardiance] 10 mg PO DAILY 11/12/23 11/15/23 Fenofibrate 160 mg PO DAILY 11/12/23 11/15/23 Furosemide [Lasix] 40 mg PO DAILY 11/12/23 11/15/23 Garlic 1,000 mg PO DAILY 11/12/23 11/15/23 Montelukast [Singulair] 10 mg PO HS 11/12/23 11/15/23 Multi Vitamin 1 tab PO DAILY 11/12/23 11/15/23 Potassium Chloride [Klor-Con M10] 20 meq PO DAILY 11/12/23 11/15/23 Valsartan 40 mg PO DAILY 11/12/23 11/15/23 Zinc Gluconate [Zinc] 50 mg PO DAILY 11/12/23 11/15/23 allopurinoL 200 mg PO DAILY 11/12/23 11/15/23 minoxidiL 2.5 mg PO HS 11/12/23 11/15/23 minoxidiL 5 mg PO DAILY 11/12/23 11/15/23 Previous Rx's Medication Instructions Recorded Cephalexin [Keflex] 500 mg PO Q6HR 7 Days #28 cap 07/22/24 Allergies Allergy/AdvReac Type Severity Reaction Status Date / Time [id number] Reductase Allergy Swelling Verified 07/22/24 11:38 Inhibitor Review of Systems ROS Statement: Those systems with pertinent positive or pertinent negative responses have been documented in the HPI. ROS Other: All systems not noted in ROS Statement are negative. Past Medical History Past Medical History: Atrial Fibrillation, Chest Pain / Angina, GERD/Reflux, Hyperlipidemia, Hypertension, Renal Disease, Sleep Apnea/CPAP/BIPAP Additional Past Medical History / Comment(s): recently completed tx for sinus infection. wore 24hr heart monitor 10/29/23- for chest discomfort - low heart rate per pt. moderate kidney disease. gout. wears cpap. History of Any Multi-Drug Resistant Organisms: None Reported Past Surgical History: Back Surgery, Hernia Repair, Orthopedic Surgery, Prostate Surgery Additional Past Surgical History / Comment(s): tamra knee surgeries, eye surgery to remove fatty tissue. cataract tamra. inguinal hernia repair.colonoscopy, pacemaker Past Anesthesia/Blood Transfusion Reactions: No Reported Reaction Past Psychological History: Anxiety Smoking Status: Never smoker Past Alcohol Use History: None Reported Past Drug Use History: None Reported - Past Family History Brother(s) Family Medical History: Cancer Additional Family Medical History / Comment(s): throat cancer Sister(s) Additional Family Medical History / Comment(s): lung issues- Mother Additional Family Medical History / Comment(s): 93 yrs. arthritis. kidney issues General Exam Limitations: no limitations General appearance: alert, in no apparent distress Head exam: Present: atraumatic, normocephalic, normal inspection GI/Abdominal exam: Present: soft, normal bowel sounds. Absent: distended, tenderness, guarding, rebound, rigid Back exam: Absent: CVA tenderness (R), CVA tenderness (L) Neurological exam: Present: alert, oriented X3 Psychiatric exam: Present: normal affect, normal mood Skin exam: Present: warm, dry, intact, normal color. Absent: rash Course Vital Signs 07/22/24 11:36 Temperature 97.8 F Pulse Rate 70 Respiratory 20 Rate Blood Pressure 143/81 O2 Sat by Pulse 99 Oximetry Medical Decision Making - Medical Decision Making Was pt. sent in by a medical professional or institution (, PA, MANAGER PROGRAM MANAGEMENT, urgent care, hospital, or correction...) When possible be specific @ -No Did you speak to anyone other than the patient for history (EMS, parent, family, police, friend...)? What history was obtained from this source @ -Family supplemented history Did you review nursing and triage notes (agree or disagree)? Why? @ -I reviewed and agree with nursing and triage notes Were old charts reviewed (outside hosp., previous admission, EMS record, old EKG, old radiological studies, urgent care reports/EKG's, correction records)? Report findings @ -No old charts were reviewed Differential Diagnosis (chest pain, altered mental status, abdominal pain women, abdominal pain men, vaginal bleeding, weakness, fever, dyspnea, syncope, headache, dizziness, GI bleed, back pain, seizure, CVA, palpatations, mental health, musculoskeletal)? @ -Differential Abdominal Pain Men: Appendicitis, cholecystitis, diverticulosis, ischemic bowel, pancreatitis, hepatitis, UTI, gastroenteritis, AAA, incarcerated hernia, bowel obstruction, constipation, inflammatory bowel, hepatitis, peptic ulcer disease, splenic infarction, perforated viscus, testicular torsion, this is not meant to be an all-inclusive list EKG interpreted by me (3pts min.). @ -None X-rays interpreted by me (1pt min.). @ -None done CT interpreted by me (1pt min.). @ -CT abdomen pelvis reveals no acute process, nonobstructing left renal ca lculus. U/S interpreted by me (1pt. min.). @ -None done What testing was considered but not performed or refused? (CT, X-rays, U/S, labs)? Why? @ -None What meds were considered but not given or refused? Why? @ -Patient declines narcotics initially as he states caused him constipation Did you discuss the management of the patient with other professionals (professionals i.e. , PA, MANAGER PROGRAM MANAGEMENT, lab, RT, psych nurse, social work supervisor, laundry machine tender, teacher, chemical instrumentation officer, case planner)? Give summary @ -No Was smoking cessation discussed for >3mins.? @ -No Was critical care preformed (if so, how long)? @ -No Were there social determinants of health that impacted care today? How? (Homelessness, low income, unemployed, alcoholism, drug addiction, transportation, low edu. Level, literacy, decrease access to med. care, intermediate, rehab)? @ -No Was there de-escalation of care discussed even if they declined (Discuss DNR or withdrawal of care, Hospice)? DNR status @ -No What co-morbidities impacted this encounter? (DM, HTN, Smoking, COPD, CAD, Cancer, CVA, ARF, Chemo, Hep., AIDS, mental health diagnosis, sleep apnea, morbid obesity)? @ -None Was patient admitted / discharged? Hospital course, mention meds given and route, prescriptions, significant lab abnormalities, going to OR and other pertinent info. @ - discharged. 74-year-old male presenting for right lower quadrant abdominal pain x 1 week. Initial vital signs are within acceptable limits. Patient is well-appearing, no acute distress. Patient is afebrile with no CVA tenderness. Tolerating orals well. Abdomen soft and nonsurgical. Provided with IV fluids. Lab work remarkable for mildly elevated BUN/creatinine at 1.75/34. Creatinine comparable to previous value. White blood cell count normal at 4.7. Urinalysis remarkable for large leukocyte esterase, 79 white blood cells, 4+ glucose. Urinalysis highly indicative of UTI, urine culture sent. CT abdomen pelvis reveals no acute process. Discussed with patient and family diagnosis of urinary tract infection. Patient will be provided with outpatient prescription for antibiotic. Appropriate return precautions and follow-up care discussed. Case was discussed with my ED attending Dr. Kasper. Undiagnosed new problem with uncertain prognosis? @ -No Drug Therapy requiring intensive monitoring for toxicity (Heparin, Nitro, Insulin, Cardizem)? @ -No Were any procedures done? @ -No Diagnosis/symptom? @ -Urinary tract infection Acute, or Chronic, or Acute on Chronic? @ -Acute Uncomplicated (without systemic symptoms) or Complicated (systemic symptoms)? @ -Uncomplicated Side effects of treatment? @ -No Exacerbation, Progression, or Severe Exacerbation? @ -No Poses a threat to life or bodily function? How? (Chest pain, [place], [place], pneumonia, PE, COPD, DKA, ARF, appy, cholecystitis, CVA, Diverticulitis, Homicidal, Suicidal, threat to staff... and all critical care pts) @ -No - Lab Data Result diagrams: 07/22/24 12:50 07/22/24 12:50 Lab Results 07/22/24 07/22/24 07/22/24 Range/Units 12:50 12:50 12:50 WBC 4.70 (4.50-10.00) 10*3/uL RBC 4.64 (4.40-5.60) 10*6/uL Hgb 12.6 L (13.0-17.0) g/dL Hct 38.2 L (39.6-50.0) % MCV 82.3 (80.0-97.0) fL MCH 27.2 (27.0-32.0) pg MCHC 33.0 (32.0-37.0) g/dL Plt Count 268 (140-440) 10*3/uL MPV 9.4 L (9.5-12.2) fL Immature Gran % (Auto) 0.4 % Neutrophils % 55.0 % Lymphocytes % 32.8 % Monocytes % 8.1 % Eosinophils % 2.8 % Basophils % 0.9 % Immature Gran # 0.02 (0.00-0.04) 10*3/uL Neutrophils # 2.59 (1.80-7.70) 10*3/uL Lymphocytes # 1.54 (0.90-5.00) 10*3/uL Monocytes # 0.38 (0.20-1.00) 10*3/uL Eosinophils # 0.13 (0.04-0.35) 10*3/uL Basophils # 0.04 (0.00-0.10) 10*3/uL Sodium 138 (137-145) mmol/L Potassium 4.5 (3.5-5.1) mmol/L Chloride 106 (98-107) mmol/L Carbon Dioxide 22 (22-30) mmol/L Anion Gap 10 mmol/L BUN 34 H (9-20) mg/dL Creatinine 1.78 H (0.66-1.25) mg/dL Est GFR (CKD-EPI)AfAm 42 (>60 ml/min/1.73 sqM) Est GFR (CKD-EPI)NonAf 36 (>60 ml/min/1.73 sqM) Glucose 130 H (74-99) mg/dL Plasma Lactic Acid Aron (0.7-2.0) mmol/L Calcium 9.6 (8.4-10.2) mg/dL Total Bilirubin 1.3 (0.2-1.3) mg/dL AST 37 (17-59) U/L ALT 15 (4-49) U/L Alkaline Phosphatase 47 (38-126) U/L Total Protein 7.7 (6.3-8.2) g/dL Albumin 4.2 (3.5-5.0) g/dL Lipase 66 (23-300) U/L Urine Color Colorless Urine Appearance Cloudy (Clear) Urine pH 5.5 (5.0-8.0) Ur Specific [place] 1.012 (1.001-1.035) Urine Protein Negative (Negative) Urine Glucose (UA) 4+ H (Negative) Urine Ketones Negative (Negative) Urine Blood Negative (Negative) Urine Nitrite Negative (Negative) Urine Bilirubin Negative (Negative) Urine Urobilinogen <2.0 (<2.0) mg/dL Ur Leukocyte Esterase Large H (Negative) Urine RBC 1 (0-5) /hpf Urine WBC 79 H (0-5) /hpf Ur Squamous Epith Cells <1 (0-4) /hpf Urine Bacteria Many H (None) /hpf Hyaline Casts 1 (0-2) /lpf Urine Mucus Rare H (None) /hpf Urine Yeast (Budding) Occasional H (None) /hpf // Range/Units 12:50 WBC (4.50-10.00) 10*3/uL RBC (4.40-5.60) 10*6/uL Hgb (13.0-17.0) g/dL Hct (39.6-50.0) % MCV (80.0-97.0) fL MCH (27.0-32.0) pg MCHC (32.0-37.0) g/dL Plt Count (140-440) 10*3/uL MPV (9.5-12.2) fL Immature Gran % (Auto) % Neutrophils % % Lymphocytes % % Monocytes % % Eosinophils % % Basophils % % Immature Gran # (0.00-0.04) 10*3/uL Neutrophils # (1.80-7.70) 10*3/uL Lymphocytes # (0.90-5.00) 10*3/uL Monocytes # (0.20-1.00) 10*3/uL Eosinophils # (0.04-0.35) 10*3/uL Basophils # (0.00-0.10) 10*3/uL Sodium (137-145) mmol/L Potassium (3.5-5.1) mmol/L Chloride (98-107) mmol/L Carbon Dioxide (22-30) mmol/L Anion Gap mmol/L BUN (9-20) mg/dL Creatinine (0.66-1.25) mg/dL Est GFR (CKD-EPI)AfAm (>60 ml/min/1.73 sqM) Est GFR (CKD-EPI)NonAf (>60 ml/min/1.73 sqM) Glucose (74-99) mg/dL Plasma Lactic Acid Aron 1.1 (0.7-2.0) mmol/L Calcium (8.4-10.2) mg/dL Total Bilirubin (0.2-1.3) mg/dL AST (17-59) U/L ALT (4-49) U/L Alkaline Phosphatase (38-126) U/L Total Protein (6.3-8.2) g/dL Albumin (3.5-5.0) g/dL Lipase (23-300) U/L Urine Color Urine Appearance (Clear) Urine pH (5.0-8.0) Ur Specific [place] (1.001-1.035) Urine Protein (Negative) Urine Glucose (UA) (Negative) Urine Ketones (Negative) Urine Blood (Negative) Urine Nitrite (Negative) Urine Bilirubin (Negative) Urine Urobilinogen (<2.0) mg/dL Ur Leukocyte Esterase (Negative) Urine RBC (0-5) /hpf Urine WBC (0-5) /hpf Ur Squamous Epith Cells (0-4) /hpf Urine Bacteria (None) /hpf Hyaline Casts (0-2) /lpf Urine Mucus (None) /hpf Urine Yeast (Budding) (None) /hpf Disposition Clinical Impression: Urinary tract infection Disposition: HOME SELF-CARE Condition: Stable Instructions (If sedation given, give patient instructions): Urinary Tract Infection in Men (ED) Additional Instructions: Take Keflex 4 times daily for 7 days. Please return to the Emergency Department if symptoms worsen or any other concerns. Prescriptions: Cephalexin [Keflex] 500 mg PO Q6HR 7 Days #28 cap Is patient prescribed a controlled substance at d/c from ED?: No Referrals: Jerald Reveles MD [Primary Care Provider] - 1-2 days Time of Disposition: 15:05
[2024-07-22] MEDS: SODIUM CHLORIDE 0.9% 1,000 ML IV STA (12:50)
[2024-07-22 13:02] LABS: Basophils # (A) 0.04 10*3/uL (0.00-0.10); Basophils % (A) 0.9 %; Eosinophils # (A) 0.13 10*3/uL (0.04-0.35); Eosinophils % (A) 2.8 %; HCT 38.2 % (39.6-50.0); HGB 12.6 g/dL (13.0-17.0); Lymphocytes # (A) 1.54 10*3/uL (0.90-5.00); Lymphocytes % (A) 32.8 %; MCH 27.2 pg (27.0-32.0); MCV 82.3 fL (80.0-97.0); Mean Platelet Volume 9.4 fL (9.5-12.2); Monocytes # (A) 0.38 10*3/uL (0.20-1.00); Monocytes % (A) 8.1 %; Neutrophils # (A) 2.59 10*3/uL (1.80-7.70); Platelet Count 268 10*3/uL (140-440); RBC 4.64 10*6/uL (4.40-5.60); RDW 15.4 % (11.5-14.5)
[2024-07-22 13:07] LABS: Appearance,Urine Cloudy (Clear); Bacteria,Urine Many /hpf; Bilirubin,Urine Negative (Negative); Blood,Urine Negative (Negative); Budding Yeast,Urine Occasional /hpf; Color,Urine Colorless; Glucose,Urine (UA) 4+ (Negative); Hyaline Casts,Urine 1 /lpf (0-2); Ketones,Urine Negative (Negative); Leukocyte Esterase,Urine Large (Negative); Mucus,Urine Rare /hpf; Nitrite,Urine Negative (Negative); PH, Urine 5.5 (5.0-8.0); Protein,Urine Negative (Negative); RBC,Urine 1 /hpf (0-5); Specific Gravity,Urine 1.012 (1.001-1.035); Squamous Epithelial Cell,Urine <1 /hpf (0-4); Urobilinogen,Urine <2.0 mg/dL (<2.0); WBC,Urine 79 /hpf (0-5)
[2024-07-22 13:15] LABS: ALT 15 U/L (4-49); African American GFR (CKD) 42 (>60 ml/min/1.73 sqM); Anion Gap 10 mmol/L; Blood Urea Nitrogen 34 mg/dL (9-20); Calcium 9.6 mg/dL (8.4-10.2); Carbon Dioxide 22 mmol/L (22-30); Chloride 106 mmol/L (98-107); Glucose 130 mg/dL (74-99); Lipase 66 U/L (23-300); Non-African American GFR(CKD) 36 (>60 ml/min/1.73 sqM); Sodium 138 mmol/L (137-145); Total Bilirubin 1.3 mg/dL (0.2-1.3)
[2024-07-22 13:20] LABS: AST 37 U/L (17-59); Albumin 4.2 g/dL (3.5-5.0); Alkaline Phosphatase 47 U/L (38-126); Potassium 4.5 mmol/L (3.5-5.1); Total Protein 7.7 g/dL (6.3-8.2)
--- NOTE | 2024-07-22 14:21 | CT ---
EXAMINATION TYPE: CT abdomen pelvis wo con DATE OF EXAM: 07/22/2024 1:48 PM COMPARISON: 07/05/2024 CLINICAL INDICATION: Male, 74 years old with history of RLQ abd pain; RLQ pain TECHNIQUE: Axial CT abdomen pelvis wo con;Sagittal and coronal reformats were created on a separate workstation. Contrast used: mL of , (none if empty) Oral contrast used: without Oral Contrast (none if empty) CT DLP: 761.3 mGycm, Automated exposure control for dose reduction was used. FINDINGS: LOWER CHEST: The heart is mildly enlarged for size. Conduction leads remain ventricular atrium. Strea ky atelectasis in the lung bases. ABDOMEN LIVER: Unremarkable GALLBLADDER AND BILE DUCTS: Unremarkable. PANCREAS: Unremarkable. SPLEEN: Unremarkable. ADRENAL GLANDS: Unremarkable. KIDNEYS AND URETERS: No evidence of hydronephrosis or obstructing renal calculus. The ureters are unr emarkable. Nonobstructing left 9 mm calculus. Left renal cyst measuring up to 9 mm. No follow-up r ecommended. PELVIS BLADDER: No evidence for wall thickening or mass given limitations of exam. REPRODUCTIVE: Post TURP changes to the prostate gland. ABDOMEN & PELVIS STOMACH AND BOWEL: No evidence of bowel obstruction. Scattered colonic diverticula. PERITONEUM/RETROPERITONEUM: No evidence of pneumoperitoneum or free fluid. VASCULATURE: No evidence of aortic aneurysm. MUSCULOSKELETAL: No acute osseous abnormalities. Fixation at L4-L5 appears intact. LYMPH NODES: No gross evidence for lymphadenopathy. SOFT TISSUE/ABDOMINAL WALL: Fat-containing umbilical hernia. IMPRESSION: 1. No evidence for acute abdominal process. The appendix is within normal limits. No evidence for ob structive uropathy. 2. Nonobstructing left renal calculus. 3. Left renal probable cyst no follow-up recommended. 4. Fixation at L4-L5 appears intact. 5. Post TURP changes to the prostate gland. 6. Colonic diverticulosis. [facility], , 07/22/2024 2:18 PM
[2024-07-22] MEDS: ACET/COD 300 MG/30 MG STARTER PACK 6 TAB BTL PO STA (15:21)
[2024-07-22 15:32] VITALS: BP 139/73; PULSE 67; RESP 18; TEMP 97.7
== END 2024-07-22 15:33 | disposition home or self-care (01) ==
LOC: EC 11:31
DX: N39.0 Urinary tract infection, site not specified (principal); Z88.8 Allergy status to other drugs, medicaments and biological substances
CPT/HCPCS: 36415; 74176; 80053; 81001; 83605; 83690; 85025; 87077; 87086; 87186; 96360; 99284